=== PATIENT | male | born 1985 | race Caucasian/White ===

== ENCOUNTER 2019-04-27 15:59 | Observation (INO) | payer SELFPAY ==
[2019-04-27 16:12] VITALS: BP 148/81; PULSE 110; RESP 20; TEMP 37.8; O2SAT 96
--- NOTE | 2019-04-27 17:39 | ED.SKABFB ---
HPI - Skin/Abscess/Foreign Bdy General Chief complaint: Skin/Abscess/Foreign Body Stated complaint: pt has a boil Source: patient Mode of arrival: ambulatory Limitations: no limitations History of Present Illness HPI narrative: Perineal soreness, onset 3-4 days ago. Pain and swelling getting worse, moderate in intensity. He's able to walk with minor discomfort. Hx. of skin abscesses; last one on his knee about 9 months ago; has had 4-5 over the past 2 years; no dx. of MRSA. Related Data Home Medications Medication Instructions Recorded Confirmed No Home Medications 04/27/19 04/27/19 Allergies Allergy/AdvReac Type Severity Reaction Status Date / Time No Known Allergies Allergy Unverified 12/16/17 15:57 Review of Systems Constitutional: Constitutional: Denies body ache(s) and Denies headache(s) ENT: Denies nasal congestion and Denies sore throat Cardiovascular: Cardiovascular: Denies chest pain Respiratory: Respiratory: Denies cough and Denies dyspnea Gastrointestinal: Gastrointestinal: Denies abdominal pain, Denies diarrhea and Denies nausea Comments: No pain with defecation Genitourinary: Genitourinary: Reports no additional male genitourinary complaints and Reports other Comments: no testicular pain Musculoskeletal: Comments: no myalgia Integumentary/Breasts: Skin/Breast: Reports system reviewed and no additional complaints, except as docu Neurologic: Denies radicular pain [facility] Past Medical History Medical History (Updated 04/28/19 @ 07:55 by Ad Naidu MD) Patient denies significant medical history Family History Family History (Updated 04/28/19 @ 05:57 by Ad Naidu MD) Father Cirrhosis Social History Social History Smoking packs per day: 1 Smoking cigarettes per day: 20.0 Smoking status: Current every day smoker Tobacco type: cigarettes Second hand tobacco smoke exposure: No Alcohol intake: never Substance use: never Substance use type: does not use Gender identity (if verbalized by the patient): Male Spiritual care concerns: No Agree to blood products: Yes Exam Narrative: Exam Narrative: 37.8 p= 110 Neck: Neck: no lymphadenopathy noted Chest: Chest palpation & inspection: normal inspection of the chest GI: Inspection: normal to inspection and other (no inguinal nodes) Rectal Exam: normal sphincter tone, No External hemorrhoid(s) present, No Internal hemorrhoid(s) present and No Anal fissure(s) present : Penis: Yes normal penis Scrotum: scrotum normal Testes: Testes normal Back/Spine/Pelvis: Other: swollen, fluctuant, red, and tender area in the perineum measuring 3 cm; there is a surrounding 2 cm wide band of redness. The center of the lesion is about 10 cm from the anus. There is no induration; no perianal redness, induration or tenderness or palpable cord. Anal exam is non-tender with no palpable anal nodules. Course Course Emergency Course: Pt agreed to go into hospital for IVF and IV antibiotics Vital Signs Vital signs: Vital Signs Temperature 37.8 C H 04/27/19 16:12 Pulse Rate 110 H 04/27/19 16:12 Respiratory Rate 20 04/27/19 16:12 Blood Pressure 148/81 H 04/27/19 16:12 Pulse Oximetry 96 04/27/19 16:12 Temperature 36.8 C 04/28/19 04:13 Pulse Rate 70 04/28/19 04:13 Respiratory Rate 20 04/28/19 04:13 Blood Pressure 122/65 04/28/19 04:13 Pulse Oximetry 98 04/28/19 04:13 Procedures Abscess I/D other: Date of Incision: 04/27/19 Time of Incision: 16:00 Local Anesthetic: lidocaine 1% and with epi Amount of anesthesia used (mL): 5 Technique: incised with #11 blade Amount of fluid expressed (mL): 2 Irrigation: Yes Packing used?: plain I&D Results: Pus MDM - Skin/Abscess/Foreign Bdy MDM Narrative Medical decision making narrative: Sepsis based on fever, leukocytosis, tachycardia. Abscess drained: IV antibi
[2019-04-27 17:56] LABS: Basophils Absolute Auto 0.05 K/mm3 (0.00-0.10); Basophils Percent Auto 0.3 % (0.0-1.0); Eosinophils Absolute Auto 0.01 K/mm3 (0.02-0.50); Eosinophils Percent Auto 0.1 % (1.0-6.0); Hematocrit 46.6 % (40.0-54.0); Hemoglobin 15.5 g/dL (14.0-18.0); Immature Granulocyte Absolute 0.09 K/mm3 (0.00-0.00); Immature Granulocyte Percent A 0.6 % (0.0-0.0); Lymphocytes Absolute Auto 2.48 K/mm3 (1.10-4.50); Lymphocytes Percent Auto 16.1 % (18.0-42.0); Mean Corpuscular HGB Conc 33.3 g/dL (32.0-36.0); Mean Corpuscular Hemoglobin 29.9 pg (27.0-31.0); Mean Corpuscular Volume 89.8 fL (78.0-102.0); Mean Platelet Volume 9.2 fl (8.7-11.0); Monocytes Absolute Auto 1.65 K/mm3 (0.10-0.90); Monocytes Percent Auto 10.7 % (2.0-11.0); Neutrophils Absolute Auto 11.1 K/mm3 (1.7-7.2); Neutrophils Percent Auto 72.2 % (50.0-70.0); Platelet Count Result 303 K/mm3 (150-420); Red Blood Count 5.19 M/mm3 (4.70-6.10); Red Cell Distribution Width 13.2 % (11.6-14.4); White Blood Count 15.4 K/mm3 (4.8-10.8)
[2019-04-27 18:07] LABS: Anion Gap 16.8 mmol/L (7-16); Blood Urea Nitrogen 10 mg/dL (7-18); Carbon Dioxide 25 mmol/L (21-32); Chloride 99 mmol/L (98-108); Estimated Glomerular Filt Rate > 60; Glucose 105 mg/dL (70-99); Osmolality Calculated 283 mOsm/kg (285-295); Potassium 3.8 mmol/L (3.5-5.1); Sodium 137 mmol/L (136-145)
--- NOTE | 2019-04-27 18:08 | PC.NURSE ---
PT STATES HE IS GOING OUTSIDE TO MAKE SOME PHONE CALLS CONCERNING ADMISSION TO HOSPITAL
[2019-04-27] MEDS: IBUPROFEN 600 MG TABLET PO (18:15)
[2019-04-27] MEDS: SODIUM CHLORIDE 0.9% IV 1,000 ML 999 ML IV CONT ×3 (18:15→20:44)
[2019-04-27 18:16] LABS: Lactic Acid 1.2 mmol/L (0.4-2.0)
[2019-04-27 18:18] LABS: Calcium 8.5 mg/dL (8.5-10.1)
[2019-04-27 19:09] VITALS: BP 138/64; PULSE 91; O2SAT 99
[2019-04-27 19:24] VITALS: BMI 28.6
--- NOTE | 2019-04-27 19:29 | PC.NURSE ---
IV FLUIDS INFUSING TO FLOOR
[2019-04-27 20:04] VITALS: BP 133/67; PULSE 91; RESP 18; TEMP 37.1; O2SAT 98
[2019-04-27] MEDS: AMPICILLIN SULB 3 GM/NS 100 ML 3 GM/100 ML VIAL IVPB (20:45)
[2019-04-27 22:45] VITALS: TEMP 36.9
[2019-04-28] VITALS (7 sets, daily range): BP systolic 102–133; BP diastolic 48–75; PULSE 62–84; RESP 16–20; TEMP 36.6–37.7; O2SAT 97–98
[2019-04-28] MEDS: AMPICILLIN SULB 3 GM/NS 100 ML 3 GM/100 ML VIAL IVPB ×4 (01:35→20:31)
[2019-04-28 05:42] LABS: Basophils Absolute Auto 0.02 K/mm3 (0.00-0.10); Basophils Percent Auto 0.2 % (0.0-1.0); Eosinophils Absolute Auto 0.05 K/mm3 (0.02-0.50); Eosinophils Percent Auto 0.6 % (1.0-6.0); Hemoglobin 13.9 g/dL (14.0-18.0); Immature Granulocyte Absolute 0.02 K/mm3 (0.00-0.00); Immature Granulocyte Percent A 0.2 % (0.0-0.0); Lymphocytes Percent Auto 27.3 % (18.0-42.0); Mean Corpuscular HGB Conc 33.9 g/dL (32.0-36.0); Mean Corpuscular Hemoglobin 30.5 pg (27.0-31.0); Mean Corpuscular Volume 90.1 fL (78.0-102.0); Mean Platelet Volume 9.3 fl (8.7-11.0); Monocytes Absolute Auto 0.93 K/mm3 (0.10-0.90); Monocytes Percent Auto 11.1 % (2.0-11.0); Neutrophils Absolute Auto 5.1 K/mm3 (1.7-7.2); Neutrophils Percent Auto 60.6 % (50.0-70.0); Platelet Count Result 255 K/mm3 (150-420); Red Blood Count 4.55 M/mm3 (4.70-6.10); Red Cell Distribution Width 13.4 % (11.6-14.4); White Blood Count 8.4 K/mm3 (4.8-10.8)
--- NOTE | 2019-04-28 16:11 | PM.IMHP ---
H&P: HPI History of Present Illness Chief complaint: pt has a boil <Fe Du NP - Last Filed: 04/28/19 19:01> Narrative: Jose Alberto Judd is a 33 year old male admitted with perineum skin abscess (boil). Wound was opened in the ED, wound pus culture was collected, and wound was packed with thin strip gauze. He reports having perineal pain and soreness for the last 3-4 days . 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 He has a history of having other abcesses in the past. Last one was about 9 months ago on his right knee, was opened up at Urgent care, and he took Bactrim antibiotic to complete the treatment for that. He has had 4-5 other abcesses over the past 2 years; but he has never checked on any culture results, so he doesn't know if they were Staph or not. He works out at a gym at least 5 days every week, so due to that environment and his previous boil history, he is at risk for having Staph infection. Will continue his IV Vanc and Ancef overnight and see if wound culture results have returned. There were no blood cultures collected prior to IV antibiotics starting. He currently does not have health insurance and he is unable to pay for Home Health nursing to comlete his dressing change or pack this wound after discharge. I have asked him to discuss with his family, girlfriend, or extended family to see who would be willing to help him with this at home. He does admit to smoking at least 1 PPD, denies wanting to quit or willing to quit smoking at this time, and refused a nicotine patch. He also does not have a PCP to follow up with at this time. Sepsis and Cellulitis improving. No fevers noted today, WBC 15.4 elevated at admission, improved today, perineum abscess continues to have pain, some warmth, swelling, and some redness noted at his abscess. Ordered Lidocaine topical gel to help with pain during repacking of wound and daily wound changes. Tachycardia has improved with HR 70s due to IVFs, IV antibiotics and pain control. BPs stable today. <Fe Du NP - Last Filed: 04/28/19 19:01> Review of Systems Review of Systems: All systems reviewed & are unremarkable except as noted in HPI and below <Fe Du NP - Last Filed: 04/28/19 19:> Constitutional: Constitutional: Reports as per HPI, Reports no additional constitutional complaints, Denies body ache(s), Denies chills, Denies difficulty sleeping, Denies fatigue, Denies headache(s), Denies lethargy and Denies weakness <Fe Du [employer]ER[employer] TEACHER ASSISTANT - Last Filed: 04/28/19 19:> Eyes: Eyes: Reports as per HPI <Fe Du KIND[employer] TEACHER ASSISTANT - Last Filed: 04/28/19 19:> ENT: Reports system reviewed and no additional complaints, except as documented, Reports as per HPI, Denies Normal hearing present, Denies dysphagia, Denies headache(s), Denies epistaxis, Denies nasal congestion, Denies nasal discharge, Denies tinnitus and Denies sore throat <Fe Du [employer] TEACHER ASSISTANT - Last Filed: 04/28/19 19:> Cardiovascular: Cardiovascular: Reports as per HPI, Denies no additional cardiovascular complaints, Denies chest pain, Denies diaphoresis, Denies pedal edema, Denies leg edema, Denies lightheadedness, Denies palpitations and Denies dyspnea <Fe Du [employer] TEACHER ASSISTANT - Last Filed: 04/28/19 19:> Respiratory: Respiratory: Reports as per HPI, Denies no additional respiratory complaints, Denies chest congestion, Denies cough, Denies hemoptysis, Denies dyspnea, Denies dyspnea on exertion and Denies wheezing <Fe Du [employer]ER[employer] TEACHER ASSISTANT - Last Filed: 04/28/19 19:01> Gastrointestinal: Gastrointestinal: Reports as per HPI, Reports no additional gastrointestinal complaints, Denies abdominal pain, Denies melena, Denies bloating, Denies hematochezia, Denies constipation, Denies heartburn, Denies diarrhea, Denies nausea, Denies vomiting and Denies hematemesis <Fe Du, KINDERG[employer] TEACHER ASSISTANT - Last Filed: 04/28/19 19:> Genitourinary: Ge
[2019-04-28] MEDS: IBUPROFEN 600 MG TABLET PO (18:00)
--- NOTE | 2019-04-28 19:40 | PC.NURSE ---
Pt resting in bed visiting with girlfriend, pt is afebrile, vital signs wnl
--- NOTE | 2019-04-28 20:40 | PC.NURSE ---
pt resting in bed watching tv, iv antibiotics given per order, pt drinking plenty of fluids
--- NOTE | 2019-04-28 21:22 | PC.NURSE ---
pt walking downstairs to see friend in the ER, reports pain level is better
--- NOTE | 2019-04-28 21:30 | PC.NURSE ---
pt returned to room, given turkey sandwich, denies any other needs at this time,
--- NOTE | 2019-04-28 23:55 | PC.NURSE ---
Dr King at bedside assessing pt, no new orders at this time, continue IV antibiotics and dc home tomorrow
[2019-04-29] MEDS: AMPICILLIN SULB 3 GM/NS 100 ML 3 GM/100 ML VIAL IVPB ×2 (01:57→09:00)
--- NOTE | 2019-04-29 02:03 | PC.NURSE ---
pt awakened for iv antibiotics, denies any needs or complaints at this time.
[2019-04-29 04:50] VITALS: BP 112/47; PULSE 69; RESP 16; TEMP 36.5; O2SAT 98
--- NOTE | 2019-04-29 04:50 | PC.NURSE ---
labwork completed, vital signs obtained, pt reports does not want any pain medication at this time
[2019-04-29 05:26] LABS: Mean Corpuscular HGB Conc 32.6 g/dL (32.0-36.0); Mean Corpuscular Hemoglobin 29.7 pg (27.0-31.0); Mean Corpuscular Volume 91.1 fL (78.0-102.0); Mean Platelet Volume 9.6 fl (8.7-11.0); Platelet Count Result 271 K/mm3 (150-420); Red Blood Count 4.72 M/mm3 (4.70-6.10); Red Cell Distribution Width 13.3 % (11.6-14.4); White Blood Count 6.7 K/mm3 (4.8-10.8)
[2019-04-29 05:46] LABS: Alanine Aminotransferase 16 U/L (16-63); Albumin Level 3.2 g/dL (3.4-5.0); Alkaline Phosphatase 38 U/L (46-116); Anion Gap 14.3 mmol/L (7-16); Aspartate Amino Transferase 14 U/L (15-37); Bilirubin,Total 0.4 mg/dL (0.00-1.00); Blood Urea Nitrogen 7 mg/dL (7-18); Calcium 8.5 mg/dL (8.5-10.1); Carbon Dioxide 25 mmol/L (21-32); Chloride 107 mmol/L (98-108); Estimated CRCL calculation 99 ml/min; Estimated Glomerular Filt Rate > 60; Glucose 84 mg/dL (70-99); Osmolality Calculated 291 mOsm/kg (285-295); Potassium 4.3 mmol/L (3.5-5.1); Sodium 142 mmol/L (136-145); Total Protein 6.8 g/dL (6.4-8.2)
[2019-04-29 05:48] LABS: Vancomycin Trough 3.6 ug/mL (10.0-15.0)
--- NOTE | 2019-04-29 06:00 | PC.NURSE ---
pt resting in bed, iv antibiotics running per order, denies any needs at this time
[2019-04-29 07:36] VITALS: BP 118/70; PULSE 74; RESP 16; TEMP 36.8; O2SAT 97
--- NOTE | 2019-04-29 10:48 | PC.NURSE ---
Dr. Foster and POLE CUTTER Fe in room to do round on patient. Wound assessed. Dressing removed. Changes made to dressing change. Lidocaine jelly applied to site before nurse finishes dressing change.
[2019-04-29] MEDS: LIDOCAINE HCL 2% JELLY 5 ML TUBE 1 APPLIC TOPICAL ×2 (11:20)
--- NOTE | 2019-04-29 13:17 | PM.DS ---
DS: Diagnosis Admitting Diagnosis Admitting Diagnosis: Sepsis, unspecified organism <Fe Du NP - Last Filed: 04/29/19 16:39> Discharge Diagnosis (1) Sepsis: Onset Date: ~04/27/19 <Fe Du NP - Last Filed: 04/29/19 16:39> Qualifiers: Sepsis acute organ dysfunction status: without acute organ dysfunction Sepsis type: sepsis due to unspecified organism Qualified Code(s): A41.9 - Sepsis, unspecified organism <Fe Du NP - Last Filed: 04/29/19 16:39> Code(s): A41.9 - Sepsis, unspecified organism <Fe Du NP - Last Filed: 04/29/19 16:39> Status: Acute <Fe Du NP - Last Filed: 04/29/19 16:39> Assessment and Plan: IMPROVED. HR and WBC and BP improved. at risk for having Staph infection. received 4th IV Vanc dose and Ancef overnight , discharged on Bactrim DS 2 tabs Q 12 hours for 14 days wound cultures are showing likely Staph. There were no blood cultures collected prior to IV antibiotics starting. Sepsis and Cellulitis IMPROVED No fevers noted today, WBC 15.4 elevated at admission, improved for last 2 days. perineum abscess continues to have pain, now no warmth, now minimal swelling, and resolved redness noted at his abscess. Ordered Lidocaine topical gel to help with pain during repacking of wound and daily wound changes. Tachycardia has improved with HR 70s due to IVFs, IV antibiotics and pain control. BPs stable today. <Fe Du NP - Last Filed: 04/29/19 16:39> (2) Cellulitis: Onset Date: ~04/27/19 <Fe Du NP - Last Filed: 04/29/19 16:39> Qualifiers: Site of cellulitis: unspecified site Qualified Code(s): L03.90 - Cellulitis, unspecified <Fe Du NP - Last Filed: 04/29/19 16:39> Code(s): L03.90 - Cellulitis, unspecified <Fe Du NP - Last Filed: 04/29/19 16:39> Status: Acute <Fe Du NP - Last Filed: 04/29/19 16:39> Assessment and Plan: Jose Alberto Judd is a 33 year old male admitted with perineum skin abscess (boil). Wound was opened in the ED, wound pus culture was collected, and wound was packed with thin strip gauze. He reports having perineal pain and soreness for the last 3-4 days . has had 4-5 other abcesses over the past 2 years; but he has never checked on any culture results, so he doesn't know if they were Staph or not. He works out at a gym at least 5 days every week, so due to that environment and his previous boil history, he is at risk for having Staph infection. Will continue his IV Vanc and Ancef overnight and see if wound culture results have returned. There were no blood cultures collected prior to IV antibiotics starting. discharged on Bactrim DS 2 tabs Q 12 hours for 14 days perineum abscess continues to have pain, now no warmth, now minimal swelling, and resolved redness noted at his abscess. Ordered Lidocaine topical gel to help with pain during repacking of wound and daily wound changes. IV antibiotics and pain control. <Fe Du NP - Last Filed: 04/29/19 16:39> (3) Abscess, perineum: Onset Date: ~04/27/19 <Fe Du NP - Last Filed: 04/29/19 16:39> Code(s): L02.215 - Cutaneous abscess of perineum <Fe Du NP - Last Filed: 04/29/19 16:39> Status: Acute <Fe Du NP - Last Filed: 04/29/19 16:39> Assessment and Plan: Jose Alberto Judd is a 33 year old male admitted with perineum skin abscess (boil). Wound was opened in the ED, wound pus culture was collected, and wound was packed with thin strip gauze. He reports having perineal pain and soreness for the last 3-4 days . 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 perineum abscess continues to have pain, now no warmth, now minimal swelling, and resolved re
--- NOTE | 2019-04-29 14:30 | PC.NURSE ---
IV site removed, tip intact. Dressing applied to site. All discharge instructions and educatiion reviewed with patient. Wound dressing discussed with patient, patient states understanding. All belongings and medications gathered and sent home with patient. Patient denies any questions or concerns at present. Pt. left floor ambulatory.
== END 2019-04-29 14:30 | disposition home or self-care (01) ==
LOC: CHSED 16:01 → CHS2ND 19:07
PROVIDERS: Nurse Practitioner; Admitting Provider Family Medicine; Emergency Provider Family Medicine; Visit Provider Family Medicine
DX: L02.215 Cutaneous abscess of perineum (principal); L03.315 Cellulitis of perineum; F17.210 Nicotine dependence, cigarettes, uncomplicated
CPT/HCPCS: 10061; 36415; 80048; 80053; 80202; 83605; 85025; 85027; 87070; 87077; 87081; 87186; 87205; 96361; 96365; 96366; 96367; 99283; 99285; A9270; G0378; G0379; J0295; J3370; J7030

== ENCOUNTER 2019-08-16 19:08 | Emergency (ER) | payer SELFPAY ==
--- NOTE | ~2019-08-16 | XR_ITS ---
EXAMINATION: XR finger 4th LT min 2V INDICATION: Left fourth finger pain, initial encounter TECHNIQUE: Three views of the left fourth finger are obtained. COMPARISON: None available FINDINGS: There is an acute, traumatic, open, comminuted tuft fracture of the fourth distal phalanx. Soft tissue swelling surrounds the fracture. The joint spaces are maintained. No additional acute oss eous findings are evident. IMPRESSION: 1. Comminuted, open tuft fracture of the fourth distal phalanx. Reviewed, dictated and finalized at location A.
[2019-08-16 19:17] VITALS: BP 122/69; PULSE 101; RESP 20; TEMP 36.6; O2SAT 100
[2019-08-16] MEDS: MORPHINE SULFATE 4 MG/ML INJ IM (19:28)
[2019-08-16] MEDS: TETANUS,DIPHTHERIA,AC PERTUSSIS ADULT 0.5 ML (ADACEL) IM (19:29)
--- NOTE | 2019-08-16 19:53 | ED.GENADULT ---
HPI - General Adult General Chief complaint: Trauma Stated complaint: smashed finger Source: patient History of Present Illness HPI narrative: this is a 34-year-old male that presents with injury to his left 4th finger after he had it smashed on a trailer causing avulsion injury to the left 4th anterior finger with some nail involvement and rates his pain level at greater than 10/10, occurred earlier today is not up-to-date with his tetanus shot, has some bleeding that from the injury site on the left 4th finger with some intense pain and what appears to be an open area on the distal end of his left 4th finger. Onset (ago): hour(s) Location: upper extremity (Left 4th finger injury) Severity: severe Severity scale (1-10): >10 Quality: stabbing Pain Consistency: constant Relieving factors: none Exacerbating factors: movement Related Data Allergies Allergy/AdvReac Type Severity Reaction Status Date / Time No Known Allergies Allergy Unverified 12/16/17 15:57 Review of Systems Review of Systems: All systems reviewed & are unremarkable except as noted in HPI and below PMFSH Past Medical History Medical History Abscess Patient denies significant medical history Family History Family History Father Cirrhosis Social History Social History Smoking packs per day: 1 Smoking cigarettes per day: 20.0 Smoking status: Current every day smoker Tobacco type: cigarettes Second hand tobacco smoke exposure: No Alcohol intake: never Substance use: never Substance use type: does not use Gender identity (if verbalized by the patient): Male Spiritual care concerns: No Agree to blood products: Yes Exam Const: General: no acute distress Orientation/consciousness: patient oriented x3 HENMT: Head: normal to inspection Eyes: Conjunctivae: conjunctivae normal Pupils: Equal, round and reactive pupils present Neck: Neck: normal visual inspection Chest: Chest palpation & inspection: normal inspection of the chest Resp: Effort & Inspection: normal respiratory effort Auscultation: clear to auscultation bilaterally Cardio: Rate: regular rate Rhythm: regular rhythm GI: GI Palp: Yes Soft to palpation Back/Spine/Pelvis: Back: no CVA tenderness Skin: Wounds: wounds noted ( Avulsion of nail and of the skin anterior surface ) Other: avulsion injury of involving the anterior skin and nail of his left 4th finger with what appears to be an open area with exposed fragments of what appears to be the tuft or distal end of his bone. Neuro: General: patient oriented x3 and moves all extremities Extrem: General: normal to inspection Psych: Appearance: grossly normal Mental Status: mental status grossly normal Thought content: Yes Normal thought content present Course Course Emergency Course: Patient having intense pain she rates greater than 10/10, a shaking his vital signs are stable blood pressure 122/69 with a heart rate of 101, patient was updated with his tetanus vaccine, was given a shot of antibiotics with ceftriaxone, and was given IM 4 mg of morphine. Suggested that he have a distal nerve block but the patient declined. Talked to Dr. Hallman which agreed with treatment and will see the patient in the his office in the morning information [address] Hallman was given to the patient. Vital Signs Vital signs: Vital Signs Temperature 36.6 C 08/16/19 19:17 Pulse Rate 101 H 08/16/19 19:17 Respiratory Rate 08/16/19 19:17 Blood Pressure 122/69 08/16/19 19:17 Pulse Oximetry 100 08/16/19 19:17 Temperature 36.6 C 08/16/19 19:17 Pulse Rate 101 H 08/16/19 19:17 Respiratory Rate 08/16/19 19:17 Blood Pressure 122/69 08/16/19 19:17 Pulse Oximetry 100 08/16/19 19:17 Medical Decision Making Vital Sig
[2019-08-16] MEDS: cefTRIAXone 1 GM VIAL IM (20:01)
[2019-08-16 20:23] VITALS: BP 133/77
== END 2019-08-16 20:26 | disposition home or self-care (01) ==
PROVIDERS: Emergency Provider Emergency Medicine
DX: S62.635B Displaced fracture of distal phalanx of left ring finger, initial encounter for open fracture (principal); W22.8XXA Striking against or struck by other objects, initial encounter
CPT/HCPCS: 73140; 90471; 90715; 96372; 99283; 99284; J0696; J2270

== ENCOUNTER 2020-06-22 14:26 | Emergency (ER) | payer OTHER, SELFPAY ==
[2020-06-22] MEDS: ONDANSETRON INJ 4 MG/2 ML VIAL IV PUSH (14:50)
[2020-06-22] MEDS: SODIUM CHLORIDE 0.9% IV 1,000 ML 999 ML IV CONT (14:50)
[2020-06-22 15:01] LABS: Add Urine Microscopic? YES; Appearance Urine Clear (Clear); Basophils Absolute Auto 0.04 K/mm3 (0.00-0.10); Basophils Percent Auto 0.3 % (0.0-1.0); Bilirubin Urine Negative (Negative); Blood Urine Negative (Negative); Color Urine Yellow (Yellow); Eosinophils Absolute Auto 0.01 K/mm3 (0.02-0.50); Eosinophils Percent Auto 0.1 % (1.0-6.0); Glucose Urine UA Negative (Negative); Hematocrit 46.6 % (40.0-54.0); Hemoglobin 16.1 g/dL (14.0-18.0); Immature Granulocyte Absolute 0.06 K/mm3 (0.00-0.00); Immature Granulocyte Percent A 0.5 % (0.0-0.0); Ketones Urine Trace (Negative); Leukocyte Esterase Ur Negative LEU/UL (Negative); Lymphocytes Absolute Auto 1.08 K/mm3 (1.10-4.50); Lymphocytes Percent Auto 9.2 % (18.0-42.0); Mean Corpuscular HGB Conc 34.5 g/dL (32.0-36.0); Mean Corpuscular Volume 98.5 fL (78.0-102.0); Mean Platelet Volume 9.3 fl (8.7-11.0); Monocytes Absolute Auto 0.66 K/mm3 (0.10-0.90); Monocytes Percent Auto 5.6 % (2.0-11.0); Neutrophils Absolute Auto 9.9 K/mm3 (1.7-7.2); Neutrophils Percent Auto 84.3 % (50.0-70.0); Nitrate Urine Negative (Negative); Platelet Count Result 232 K/mm3 (150-420); Protein Urine Trace (Negative); Red Blood Count 4.73 M/mm3 (4.70-6.10); Red Cell Distribution Width 12.2 % (11.6-14.4); Specific Grav Ur 1.025 (1.010-1.020); Urobilinogen Urine 0.2 mg/dL (0.2-1.0); White Blood Count 11.7 K/mm3 (4.8-10.8); pH Urine 6.5 (5.0-8.0)
[2020-06-22 15:06] VITALS: BP 119/78; PULSE 94; RESP 20; TEMP 36.8; O2SAT 100
[2020-06-22 15:09] LABS: Bacteria Urine 1+ /hpf; Mucus Urine Heavy /lpf; RBC Urine 0-2 /hpf (0-2); Squamous Epithelial Cell Urine Rare /hpf (Few); WBC Urine 0-3 /hpf (0-3)
[2020-06-22 15:18] LABS: Alanine Aminotransferase 14 U/L (16-63); Albumin Level 4.1 g/dL (3.4-5.0); Alkaline Phosphatase 53 U/L (46-116); Anion Gap 9 mmol/L (8-16); Aspartate Amino Transferase < 10 U/L (15-37); Bilirubin,Total 0.7 mg/dL (0.00-1.00); Blood Urea Nitrogen 7 mg/dL (7-18); Calcium 8.8 mg/dL (8.5-10.1); Carbon Dioxide 28 mmol/L (21-32); Chloride 102 mmol/L (98-108); Estimated CRCL calculation 119 ml/min; Estimated Glomerular Filt Rate > 60; Glucose 114 mg/dL (70-99); Lipase 39 U/L (73-393); Osmolality Calculated 287 mOsm/kg (285-295); Potassium 3.6 mmol/L (3.5-5.1); Sodium 139 mmol/L (136-145); Total Protein 7.3 g/dL (6.4-8.2)
--- NOTE | 2020-06-22 15:42 | ED.NAVMDI ---
HPI - Nausea/Vomiting/Diarrhea General Chief complaint: Nausea/Vomiting/Diarrhea Stated complaint: throwing up, diarrhea, body aches Source: patient Mode of arrival: ambulatory History of Present Illness HPI Narrative: this is a 34-year-old gentleman that presents with some 1 day history of watery diarrhea with episodes of nausea and vomiting with crampy abdominal pain currently no fever chills some there is no chest pain no shortness of breath there is no dysuria no flank pain no hematuria. MD elicited complaint: nausea, vomiting, diarrhea and abdominal pain Onset (ago): day(s) Description of vomiting: watery Description of diarrhea: watery Associated nausea: Yes Associated abdominal pain: Yes Location of pain: diffuse Pain consistency: colicky Severity: mild Related Data Allergies Allergy/AdvReac Type Severity Reaction Status Date / Time No Known Allergies Allergy Unverified 06/22/20 15:17 Review of Systems Review of Systems: All systems reviewed & are unremarkable except as noted in HPI and below PMFSH Past Medical History Medical History (Updated 06/22/20 @ 15:45 by Lucian Mcghee MD) Abscess Patient denies significant medical history Family History Family History Father Cirrhosis Social History Social History Smoking packs per day: 1 Smoking cigarettes per day: 20.0 Smoking status: Current every day smoker Tobacco type: cigarettes Second hand tobacco smoke exposure: No Alcohol intake: never Substance use: never Substance use type: does not use Gender identity (if verbalized by the patient): Male Spiritual care concerns: No Agree to blood products: Yes Exam Const: General: healthy appearing, no acute distress and alert Orientation/consciousness: patient oriented x3 HENMT: Head: normal to inspection Eyes: Pupils: Equal, round and reactive pupils present EOM: EOMs intact bilaterally Direct Ophthalmoscopy: no photophobia Neck: Neck: normal visual inspection, no lymphadenopathy and no meningeal signs Chest: Chest palpation & inspection: normal inspection of the chest Resp: Effort & Inspection: normal respiratory effort Cardio: Rate: regular rate Rhythm: regular rhythm GI: GI Palp: Yes Soft to palpation Percussion: Yes normal to percussion : Testes: Testes normal Back/Spine/Pelvis: Back: no CVA tenderness Skin: General skin exam: normal color Rashes: no rashes Neuro: General: patient oriented x3, moves all extremities and no meningeal signs Extrem: General: normal to inspection and no pedal edema Psych: Mental Status: mental status grossly normal Course Course Emergency Course: Reassessment of patient patient feels better after receiving IV Zofran and IV fluids. Vital Signs Vital signs: Vital Signs Temperature 36.8 C 06/22/20 15:06 Pulse Rate 94 06/22/20 15:06 Respiratory Rate 20 06/22/20 15:06 Blood Pressure 119/78 06/22/20 15:06 Pulse Oximetry 100 06/22/20 15:06 Temperature 36.8 C 06/22/20 15:06 Pulse Rate 94 06/22/20 15:06 Respiratory Rate 20 06/22/20 15:06 Blood Pressure 119/78 06/22/20 15:06 Pulse Oximetry 100 06/22/20 15:06 MDM - Nausea/Vomiting/Diarrhea Lab Data Result diagrams: 06/22/20 14:55 06/22/20 14:55 Labs: Lab Results 06/22/20 06/22/20 06/22/20 Range/Units 14:55 14:55 14:55 WBC 11.7 H (4.8-10.8) K/mm3 RBC 4.73 (4.70-6.10) M/mm3 Hgb 16.1 (14.0-18.0) g/dL Hct 46.6 (40.0-54.0) % MCV 98.5 (78.0-102.0) fL MCH 34.0 H (27.0-31.0) pg MCHC 34.5 (32.0-36.0) g/dL RDW 12.2 (11.6-14.4) % Plt Count 232 (150-420) K/mm3 MPV 9.3 (8.7-11.0) fl Immature Gran % (Auto) 0.5 H (0.0-0.0) % Neut % (Auto) 84.3 H (50.0-70.0) % Lymph % (Auto) 9.2 L (18.0-42.0) % [place] % (Auto) 5.6 (2.0-1
[2020-06-22 16:04] VITALS: BP 120/80; PULSE 88; RESP 20; TEMP 36.7; O2SAT 100
== END 2020-06-22 16:10 | disposition home or self-care (01) ==
PROVIDERS: Emergency Provider Emergency Medicine
DX: K52.9 Noninfective gastroenteritis and colitis, unspecified (principal)
CPT/HCPCS: 36415; 80053; 81001; 83690; 85025; 96361; 96374; 99283; 99284; J2405; J7030

== ENCOUNTER 2020-12-21 11:49 | Emergency (ER) | payer OTHER, SELFPAY ==
[2020-12-21 11:55] VITALS: BP 118/84; PULSE 90; RESP 14; TEMP 37; O2SAT 97
--- NOTE | 2020-12-21 12:10 | ED.DENTAL ---
HPI - Dental/Oral General Chief complaint: Dental/Oral Stated complaint: bad toothache Source: patient Mode of arrival: ambulatory Limitations: no limitations History of Present Illness HPI Narrative: this is a 35-year-old gentleman that presents with dental pain right lower molar dental pain with surrounding gum inflammation with tender right submandibular gland with no fever chills no shortness of breath no nausea vomiting. MD Complaint: tooth pain Teeth map: 1. right lower molar gum surrounding tenderness and dental pain Onset (ago): day(s) Duration: constant Severity: moderate Severity scale (1-10): 6 Relieving factors: NSAIDs Exacerbating factors: nothing Context: history of dental caries Associated symptoms: gum swelling Treatment prior to arrival: none Related Data Allergies Allergy/AdvReac Type Severity Reaction Status Date / Time No Known Allergies Allergy Verified 12/21/20 12:00 Review of Systems Review of Systems: All systems reviewed & are unremarkable except as noted in HPI and below PMFSH Past Medical History Medical History (Updated 12/21/20 @ 12:13 by Lucian Mcghee MD) Abscess Patient denies significant medical history Family History Family History Father Cirrhosis Social History Social History Smoking packs per day: 1 Smoking cigarettes per day: 20.0 Smoking status: Current every day smoker Tobacco type: cigarettes Second hand tobacco smoke exposure: No Alcohol intake: never Substance use: never Substance use type: does not use Gender identity (if verbalized by the patient): Male Spiritual care concerns: No Agree to blood products: Yes Exam Const: General: no acute distress Orientation/consciousness: patient oriented x3 HENMT: Head: normal to inspection Eyes: Conjunctivae: conjunctivae normal Pupils: Equal, round and reactive pupils present Chest: Chest palpation & inspection: normal inspection of the chest Resp: Effort & Inspection: normal respiratory effort Auscultation: clear to auscultation bilaterally Cardio: Rate: regular rate Rhythm: regular rhythm GI: Auscultation: normal bowel sounds Back/Spine/Pelvis: Back: no CVA tenderness Skin: General skin exam: normal color Rashes: no rashes Extrem: General: normal to inspection and no pedal edema Psych: Mental Status: mental status grossly normal Affect: normal affect Course Course Emergency Course: Patient received 60mg IM Toradol and was prescribed antibiotic and some pain medication advised follow-up with his dentist soon as possible. Vital Signs Vital signs: Vital Signs Temperature 37.0 C 12/21/20 11:55 Pulse Rate 90 12/21/20 11:55 Respiratory Rate 14 12/21/20 11:55 Blood Pressure 118/84 12/21/20 11:55 Pulse Oximetry 97 12/21/20 11:55 Temperature 37.0 C 12/21/20 11:55 Pulse Rate 90 12/21/20 11:55 Respiratory Rate 14 12/21/20 11:55 Blood Pressure 118/84 12/21/20 11:55 Pulse Oximetry 97 12/21/20 11:55 Critical Care Time Critical Care Time Critical Care Time: No Discharge Plan Discharge Clinical Impression: Dental abscess, Toothache Patient Disposition: Home, Self-Care Condition: Stable Instructions: Antibiotic Form, Dental Abscess (ED), Toothache (ED) Additional Instructions: Take medicine as prescribed and follow-up with dentist soon as possible for further evaluation and treatment. Prescriptions: New tramadol [Ultram] 50 mg tablet 50 mg PO Q6H PRN (Reason: pain) Qty: 20 RF: 0 amoxicillin 500 mg tablet 500 mg PO TID Qty: 30 RF: 0 Follow-up/Referrals: UNKNOWN,DOCTOR [Primary Care Provider] - Stand Alone Forms: Work/School Release IP Time of Disposition: 12:15
[2020-12-21] MEDS: KETOROLAC (*BKC) 60 MG/2 ML VIAL IM (12:16)
== END 2020-12-21 12:22 | disposition home or self-care (01) ==
PROVIDERS: Emergency Provider Emergency Medicine
DX: K04.7 Periapical abscess without sinus (principal); K08.89 Other specified disorders of teeth and supporting structures
CPT/HCPCS: 96372; 99283; J1885

== ENCOUNTER 2021-05-05 23:55 | Emergency (ER) | payer SELFPAY ==
[2021-05-05 23:55] VITALS: BP 138/87; PULSE 75; RESP 16; TEMP 36.7; O2SAT 100
[2021-05-06 00:20] VITALS: PULSE 83
--- NOTE | 2021-05-06 00:24 | ED.GENADULT ---
HPI - General Adult General Chief complaint: Unspecified Stated complaint: Drug Withdrawls Source: patient and family Mode of arrival: ambulatory Limitations: no limitations History of Present Illness HPI narrative: this is a 35-year-old gentleman that presents with his with his significant other with twitching that started earlier this evening patient admits to taking methamphetamine on Friday. Patient is alert oriented with no nausea vomiting no shortness of breath no chest pain no fever or chills. patient denies any nausea or vomiting, no diarrhea constipation no abdominal pain. Onset (ago): hour(s) Radiation: non-radiation Severity: moderate Related Data Allergies Allergy/AdvReac Type Severity Reaction Status Date / Time No Known Allergies Allergy Verified 05/06/21 00:13 Review of Systems Review of Systems: All systems reviewed & are unremarkable except as noted in HPI and below PMFSH Past Medical History Medical History (Updated 05/06/21 @ 00:31 by Lucian Mcghee MD) Abscess Patient denies significant medical history Family History Family History Father Cirrhosis Social History Social History Smoking packs per day: 1 Smoking cigarettes per day: 20.0 Smoking status: Current every day smoker Tobacco type: cigarettes Second hand tobacco smoke exposure: No Alcohol intake: never Substance use: never Substance use type: does not use Gender identity (if verbalized by the patient): Male Spiritual care concerns: No Agree to blood products: Yes Exam Const: General: cooperative, healthy appearing, comfortable and no acute distress HENMT: Head: normal to inspection Ears: hearing grossly normal bilaterally General nose exam: Normal external nose present Face and sinus: normal facial exam Mouth: Yes Normal oral and palatal mucosa present Eyes: General: appearance normal, both eyes and all related structures Visual Wolff: normal visual wolff by confrontation EOM: EOMs intact bilaterally Neck: Neck: normal visual inspection, full ROM, no lymphadenopathy and no meningeal signs Chest: Chest palpation & inspection: normal inspection of the chest and normal palpation of entire chest wall Resp: Effort & Inspection: normal respiratory effort and able to speak in complete sentences Cardio: Palpation: normal PMI Rate: regular rate Rhythm: regular rhythm GI: Inspection: normal to inspection Back/Spine/Pelvis: Back: no CVA tenderness Skin: General skin exam: normal color and no rashes or lesions noted Neuro: General: oriented to person, oriented to place, oriented to time, patient oriented x3, gait normal, tone normal and moves all extremities Extrem: Other: patient has a generalized jerking motion /myoclonus Psych: Appearance: grossly normal and well kempt Course Course Emergency Course: labs obtained and reviewed with patient patient was given 2mg of Klonopin. Critical Care Time Critical Care Time Critical Care Time: No Discharge Plan Discharge Clinical Impression: Myoclonus Drug withdrawal Qualifiers: Substance type: other psychostimulant Qualified Code(s): F15.93 - Other stimulant use, unspecified with withdrawal Patient Disposition: Home, Self-Care Condition: Stable Instructions: Antibiotic Form Additional Instructions: Take medicine as prescribed and follow-up primary care physician within the next 2 to 3 days further evaluation treatment. Prescriptions: New lorazepam [Ativan] 1 mg tablet 1 mg PO TID PRN (Reason: agitation) Qty: 20 RF: 0 Follow-up/Referrals: UNKNOWN,DOCTOR [Primary Care Provider] - Time of Disposition: 03:13
[2021-05-06] MEDS: clonazePAM (*CRX) 0.5 MG TABLET 2 MG PO (00:28)
[2021-05-06 00:47] LABS: Alanine Aminotransferase 15 U/L (16-63); Albumin Level 4.3 g/dL (3.4-5.0); Alkaline Phosphatase 60 U/L (46-116); Anion Gap 15 mmol/L (8-16); Aspartate Amino Transferase 10 U/L (15-37); Bilirubin,Total 0.9 mg/dL (0.00-1.00); Blood Urea Nitrogen 8 mg/dL (7-18); Carbon Dioxide 24 mmol/L (21-32); Chloride 99 mmol/L (98-108); Creatine Kinase 180 U/L (39-308); Estimated CRCL calculation 117 ml/min; Estimated Glomerular Filt Rate > 60; Glucose 92 mg/dL (70-99); Osmolality Calculated 284 mOsm/kg (285-295); Potassium 3.4 mmol/L (3.5-5.1); Sodium 138 mmol/L (136-145); Total Protein 7.5 g/dL (6.4-8.2)
[2021-05-06] MEDS: LORazepam INJ (*CRX) 2 MG/ML VIAL 0.5 MG IV PUSH ×2 (01:31→03:12)
[2021-05-06 03:28] VITALS: BP 123/83; PULSE 92; RESP 16; O2SAT 98
== END 2021-05-06 03:30 | disposition home or self-care (01) ==
PROVIDERS: Emergency Provider Emergency Medicine
DX: G25.3 Myoclonus (principal); F15.93 Other stimulant use, unspecified with withdrawal
CPT/HCPCS: 36415; 80053; 82550; 96374; 96376; 99284; A9270; J2060

== ENCOUNTER 2022-09-17 09:00 | Emergency (ER) | payer OTHER, SELFPAY ==
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
[2022-09-17 09:03] VITALS: BP 144/71; PULSE 75; RESP 20; TEMP 36.9; O2SAT 99
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
[2022-09-17] MEDS: KETOROLAC 30 MG/ML VIAL (*BKC) IM (09:25)
[2022-09-17] MEDS: CYCLOBENZAPRINE HCL 10 MG TABLET PO (09:25)
== END 2022-09-17 10:17 | disposition home or self-care (01) ==
PROVIDERS: Emergency Provider Emergency Medicine
DX: S39.012A Strain of muscle, fascia and tendon of lower back, initial encounter (principal); F17.210 Nicotine dependence, cigarettes, uncomplicated; V53.5XXA Driver of pick-up truck or van injured in collision with car, pick-up truck or van in traffic accident, initial encounter; Y92.411 Interstate highway as the place of occurrence of the external cause
CPT/HCPCS: 72100; 96372; 99283; A9270; J1885

== ENCOUNTER 2023-04-18 12:20 | Emergency (ER) | payer SELFPAY ==
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
[2023-04-18 12:26] VITALS: BP 148/86; PULSE 73; RESP 16; TEMP 37; O2SAT 100
[2023-04-18] MEDS: KETOROLAC (*BKC) 60 MG/2 ML VIAL IM (12:42)
[2023-04-18 12:53] VITALS: BP 148/86; PULSE 73; RESP 16; TEMP 37; O2SAT 100
== END 2023-04-18 12:53 | disposition home or self-care (01) ==
LOC: CHSED 12:34
PROVIDERS: Emergency Provider Emergency Medicine
DX: R68.84 Jaw pain (principal); F17.210 Nicotine dependence, cigarettes, uncomplicated
CPT/HCPCS: 96372; 99283; J1885

== ENCOUNTER 2023-07-06 03:39 | Emergency (ER) | payer SELFPAY ==
[2023-07-06 03:42] VITALS: BP 144/92; PULSE 68; RESP 18; TEMP 36.7; O2SAT 100
--- NOTE | 2023-07-06 03:51 | ED.DENTAL ---
HPI - Dental/Oral General Chief complaint: Dental/Oral Stated complaint: dental pain Source: patient Mode of arrival: ambulatory Limitations: no limitations History of Present Illness HPI Narrative: patient is 38-year-old male with a significant past medical history that presents today with 2 patent. Patient has a toothache on his bottom right molar. He also has a back right molar an abscess. He has had this for about 3-4 days now. It is very painful pain is 10 10. He says he is not able to sleep because of pain. He has had these before. He says he does have a dental appointment but not for few weeks. Complaint: tooth pain Location: Tooth # Teeth map: 1. tooth abscess Onset (ago): day(s) Duration: constant Severity: severe Severity scale (1-10): 10 Relieving factors: nothing Exacerbating factors: chewing and cold Context: history of dental caries Associated symptoms: gum swelling and pain with swallowing Treatment prior to arrival: none Related Data Home Medications Medication Instructions Recorded Confirmed No Home Medications 07/06/23 07/06/23 Allergies Allergy/AdvReac Type Severity Reaction Status Date / Time No Known Allergies Allergy Verified 04/18/23 12:25 Review of Systems Review of Systems: ROS unobtainable: Yes unobtainable due to endotracheal tube Constitutional: Constitutional: Reports as per HPI Eyes: Eyes: Reports no additional eye complaints ENT: Reports as per HPI Cardiovascular: Cardiovascular: Reports no additional cardiovascular complaints Respiratory: Respiratory: Reports no additional respiratory complaints Gastrointestinal: Gastrointestinal: Reports no additional gastrointestinal complaints Genitourinary: Genitourinary: Reports no additional male genitourinary complaints Musculoskeletal: Musculoskeletal: Reports no additional musculoskeletal complaints Integumentary/Breasts: Skin/Breast: Reports system reviewed and no additional complaints, except as docu Neurologic: Reports system reviewed and no additional complaints, except as documented Psychiatric: Psychiatric: Reports no additional psychiatric complaints Endocrine: Endocrine: Reports no additional endocrine complaints Hematologic/Lymphatic: Hematologic/Lymphatic: Reports no additional hematologic/lymphatic complaints Allergic/Immunologic: Allergic/Immunologic: Reports no additional allergic/immunologic complaints [facility] Past Medical History Medical History (Updated 07/06/23 @ 03:58 by Humberto Mitchell MD) Abscess Patient denies significant medical history Family History Family History Father Cirrhosis Social History Social History Smoking packs per day: 1 Smoking cigarettes per day: 20.0 Smoking status: Current every day smoker Tobacco type: cigarettes Second hand tobacco smoke exposure: No Alcohol intake: never Substance use: never Substance use type: does not use Gender identity (if verbalized by the patient): Male Spiritual care concerns: No Agree to blood products: Yes Exam Const: General: healthy appearing Nutritional Appearance: well nourished Orientation/consciousness: patient oriented x3 Limitations: no limitations HENMT: Head: normal to inspection Ears: external ears normal Face/Nose/Sinus: Normal external nose present Face and sinus: normal facial exam Mouth: Yes Normal oral and palatal mucosa present Eyes: Conjunctivae: conjunctivae normal Pupils: Equal, round and reactive pupils present EOM: EOMs intact bilaterally Neck: Neck: normal visual inspection Chest: Chest palpation & inspection: normal inspection of the chest Resp: Effort & Inspection: normal respiratory effort Auscultation: clear to auscultation bilaterally Cardio: Rate: regular rate Rhythm: regular rhythm GI: GI Palp: Yes Soft to palpation Back/Spine/Pelvis
[2023-07-06] MEDS: CLINDAMYCIN HCL 150 MG CAP 300 MG PO (03:54)
[2023-07-06] MEDS: HYDROcodone/acetaminophen (*CRX) 5-325 MG TABLET 1 TAB PO (03:55)
== END 2023-07-06 04:04 | disposition home or self-care (01) ==
PROVIDERS: Emergency Provider Family Medicine
DX: K04.7 Periapical abscess without sinus (principal); F17.210 Nicotine dependence, cigarettes, uncomplicated
CPT/HCPCS: 99283; A9270